=== PATIENT | female | born 1945 | race Caucasian/White ===

== ENCOUNTER → 2017-03-03 | Outpatient (CLI) | payer MEDICARE, BC, OTHER | LOC: HEART CORB 09:58 | DX: I49.3 Ventricular premature depolarization (principal); I10 Essential (primary) hypertension | CPT/HCPCS: 93306 ==

== ENCOUNTER 2020-09-25 17:50 | Inpatient (IN) | payer MEDICARE, BC, OTHER ==
[~2020-09-25] VITALS: Ht 162.6 cm; Wt 95.7 kg
[2020-09-25] MEDS ORDERED: ASPIRIN EC81 MG PO (20:04)
[2020-09-25] MEDS ORDERED: CLOPIDOGREL75 MG PO (20:06)
[2020-09-25] MEDS ORDERED: LEXAPRO5 MG PO (20:07)
[2020-09-25] MEDS ORDERED: CRANBERRY250 MG PO (20:07)
[2020-09-25] MEDS ORDERED: LIPITOR40 MG PO (20:07)
[2020-09-25] MEDS ORDERED: MIRALAX17 GM PO (20:08)
[2020-09-25] MEDS ORDERED: METHYLPHENIDATE10 MG PO (20:08)
[2020-09-25] MEDS ORDERED: POTASSIUM20 MEQ/15 PO (20:09)
[2020-09-25] MEDS ORDERED: SYNTHROID125 MCG PO (20:10)
[2020-09-25] MEDS ORDERED: SYNTHROID100 MCG PO (20:10)
[2020-09-25] MEDS ORDERED: TOUJEO MAX300 UNIT/1 SQ (20:11)
[2020-09-25] MEDS ORDERED: THERA-M CAPLET1 EAC1 PO (20:11)
[2020-09-25] MEDS ORDERED: PEPCID20 MG PO (20:12)
[2020-09-25] MEDS ORDERED: ACETAMINOP160 MG/51 PO (20:14)
[2020-09-25] MEDS ORDERED: ZOFRAN ODT 4 MG4 MG GT (20:15)
[2020-09-25] MEDS ORDERED: CONSTULOSE10 GM/15 M PO (20:15)
[2020-09-26 04:31] LABS: HEMOGLOBIN 14.4 gm/dl (12.3-15.3); RED BLOOD COUNT 4.68 M/UL (4.00-5.10); WHITE BLOOD COUNT 16.2 K/UL (4.5-11.0)
[2020-09-26 05:02] LABS: BUN/CREATININE RATIO 14 (0-10)
[2020-09-27 04:42] LABS: HEMOGLOBIN 13.1 gm/dl (12.3-15.3); RED BLOOD COUNT 4.24 M/UL (4.00-5.10)
[2020-09-27 05:07] LABS: BUN/CREATININE RATIO 19 (0-10)
[2020-09-27 05:12] LABS: WHITE BLOOD COUNT 11.4 K/UL (4.5-11.0)
[2020-09-29 03:14] LABS: HEMOGLOBIN 12.5 gm/dl (12.3-15.3); RED BLOOD COUNT 4.07 M/UL (4.00-5.10); WHITE BLOOD COUNT 9.2 K/UL (4.5-11.0)
[2020-09-29 03:38] LABS: BUN/CREATININE RATIO 19 (0-10)
[2020-09-30 03:39] LABS: BUN/CREATININE RATIO 16 (0-10)
[2020-10-01 06:13] LABS: BUN/CREATININE RATIO 16 (0-10)
[2020-10-04 05:07] LABS: BUN/CREATININE RATIO 19 (0-10)
[2020-10-04] MEDS ORDERED: KEPPRA 500 MG500 MG PO (09:58)
== END 2020-10-04 18:12 | DRG 100 ==
LOC: MED SURG 4 19:29
PROVIDERS: Internal Medicine; ADMIT Internal Medicine
DX: G40.909 Epilepsy, unspecified, not intractable, without status epilepticus (principal); G93.41 Metabolic encephalopathy; J69.0 Pneumonitis due to inhalation of food and vomit; J96.01 Acute respiratory failure with hypoxia; N39.0 Urinary tract infection, site not specified; I69.351 Hemiplegia and hemiparesis following cerebral infarction affecting right dominant side; B96.5 Pseudomonas (aeruginosa) (mallei) (pseudomallei) as the cause of diseases classified elsewhere; B96.89 Other specified bacterial agents as the cause of diseases classified elsewhere; R13.10 Dysphagia, unspecified; Z20.822 Contact with and (suspected) exposure to COVID-19; D72.829 Elevated white blood cell count, unspecified; K21.9 Gastro-esophageal reflux disease without esophagitis; E03.9 Hypothyroidism, unspecified; E11.65 Type 2 diabetes mellitus with hyperglycemia; E66.01 Morbid (severe) obesity due to excess calories; Z74.01 Bed confinement status; Z79.82 Long term (current) use of aspirin; Z79.899 Other long term (current) drug therapy; Z79.4 Long term (current) use of insulin; Z88.2 Allergy status to sulfonamides; Z88.8 Allergy status to other drugs, medicaments and biological substances; Z91.018 Allergy to other foods; I69.320 Aphasia following cerebral infarction; Z28.21 Immunization not carried out because of patient refusal; Z93.1 Gastrostomy status; I69.398 Other sequelae of cerebral infarction; Z79.01 Long term (current) use of anticoagulants; Z68.36 Body mass index [BMI] 36.0-36.9, adult
CPT/HCPCS: 36415; 70551; 80048; 80053; 82962; 83735; 85025; 85027; 87040; 87077; 87086; 87186; 92526; 92610; 93970; 94640; 94664; 94760; 97163; 97166; C1751; J0360; J2185; J2543; J7030; U0002